=== PATIENT | female | born 1940 | race Caucasian/White ===

== ENCOUNTER → 2020-09-22 | Outpatient (CLI) | payer MEDICARE, OTHER | LOC: LAB SHORT 15:50 → LAB 15:50 | DX: D48.5 Neoplasm of uncertain behavior of skin (principal); L57.0 Actinic keratosis | CPT/HCPCS: 88305; 88312 ==

== ENCOUNTER → 2021-03-09 | Outpatient (CLI) | payer MEDICARE, OTHER ==
[~2021-03-09] MED LIST: ASPI325EC PO; ATEN100 PO; Advil200 M1 PO; Benadryl25 MG PO; Dyazide 37.5-21 EACH PO; Estradiol0.5 MG PO; GABA300 PO; MEDR2.5 PO; MELA3; Multiple Vitam1 EAC1 PO; POTCHL10ER PO; ROSADAN45 GM TP; Synthroid112 MCG PO; TUMS500 MG PO; VITAMIN D-32000 UNIT PO
== END | disposition home or self-care (01) ==
LOC: LAB SHORT 10:54
DX: D48.5 Neoplasm of uncertain behavior of skin (principal)
CPT/HCPCS: 88305

== ENCOUNTER → 2023-05-13 | Outpatient (CLI) | payer MEDICARE ==
[2023-05-13 15:38] LABS: BASOPHILS ABSOLUTE AUTO 0.03 K/mm3 (0.00-0.23); BASOPHILS PERCENT AUTO 1 % (0-2); EOSINOPHILS PERCENT AUTO 0 % (0-6); Hematocrit 35.1 % (33.0-51.0); Hemoglobin 11.4 g/dL (11.5-16.0); IMMATURE GRAN ABSOLUTE AUTO 0.03 K/mm3 (0.00-0.10); IMMATURE GRAN PERCENT AUTO 1 % (0-1); LYMPHOCYTES ABSOLUTE AUTO 0.34 K/mm3 (0.84-5.20); LYMPHOCYTES PERCENT AUTO 6 % (21-46); MONOCYTES ABSOLUTE AUTO 0.21 K/mm3 (0.16-1.47); MONOCYTES PERCENT AUTO 4 % (4-13); Mean Corpuscular HGB 29.2 pg (26.0-34.0); Mean Corpuscular HGB Conc 32.5 g/dL (31.5-36.5); Mean Corpuscular Volume 90 fL (80-100); Mean Platelet Volume 9.3 fL (9.1-12.4); NEUTROPHILS ABSOLUTE AUTO 5.25 K/mm3 (1.96-9.15); NEUTROPHILS PERCENT AUTO 90 % (41-73); Platelet Count 297 K/mm3 (150-400); RDW Coefficient Variation 15.3 % (11.7-14.2); RDW Standard Deviation 50.4 fL (35.1-46.3); Red Blood Cell Count 3.91 M/mm3 (3.80-5.20); White Blood Cell Count 5.86 K/mm3 (4.00-11.30)
[2023-05-13 15:47] LABS: Albumin, Blood 3.6 g/dL (3.4-5.0); Albumin/Globulin Ratio 0.8 (0.8-1.8); Bilirubin, Total 0.2 mg/dL (0.1-1.0); Bun/Creatinine Ratio 17.4 (12.0-20.0); Calcium, Blood 9.7 mg/dL (8.5-10.1); Creatinine, Blood 0.69 mg/dL (0.40-1.00); Globulin, Blood 4.3 g/dL (2.2-4.0); Potassium, Blood 4.5 mmol/L (3.5-5.5); Total Protein, Blood 7.9 g/dL (6.4-8.2)
[2023-05-13 17:01] LABS: International Normalized Ratio 1.08; Prothrombin Time Results 11.3 Sec (9.7-11.5)
== END ==
LOC: LAB SHORT 15:29 → LAB 15:29
PROVIDERS: Emergency Medicine
DX: R22.40 Localized swelling, mass and lump, unspecified lower limb (principal); R23.3 Spontaneous ecchymoses
CPT/HCPCS: 80053; 85025; 85610

== ENCOUNTER → 2024-01-30 | Outpatient (CLI) | payer MEDICARE, OTHER ==
[2024-01-31 12:49] LABS: Stool Occult Bld Immuno 1 Negative (NEGATIVE)
== END | disposition home or self-care (01) ==
LOC: LAB 18:55 → LAB SHORT 18:55 → LAB FUT 01-29 10:10
PROVIDERS: Nurse Practitioner Family
DX: R19.7 Diarrhea, unspecified (principal); R63.4 Abnormal weight loss
CPT/HCPCS: 82274

== ENCOUNTER 2024-12-18 11:06 | Day surgery (SDC) | payer MEDICARE, OTHER ==
[~2024-12-18] VITALS: Ht 162.6 cm; Wt 44.9 kg
[~2024-12-18 11:06] MED LIST changes: +Balanced Salt Epinephrine Irrigation Solution 500 mL IR SCH; +Moxifloxacin HCL 0.5 MG/0.1 ML 0.4MLSYR RIGHTEYE SCH; +Ondansetron 4 MG SoluTab MM PRN; +PHENYLEPHRINE\\TROPICAMIDE\\TETRACAINE OPHTHALMIC DILATING SOLN RIGHTEYE PRN; +Povidone-Iodine 450 DROP/30 ML Solution ONE; +Povidone-Iodine 450 DROP/30 ML Solution RIGHTEYE SCH; +Tetracaine HCl/Pf 0.5% Opth Soln 4 ml ONE; +diazePAM 5 MG,diazePAM 2 MG PO SCH
[2024-12-18] MEDS ORDERED: ANASTROZOLE1 M7 PO (12:24)
[2024-12-18] MEDS ORDERED: SPIRONOLACTONE25 MG PO (12:26)
[2024-12-18] MEDS ORDERED: ZOLP5 PO (12:26)
[2024-12-18] MEDS ORDERED: Voltaren100 GM TOP (12:26)
[2024-12-18] MEDS ORDERED: LOSA50 PO (12:27)
[2024-12-18] MEDS ORDERED: ZOLEDRONIC ACID4 M5 (12:27)
--- NOTE | 2024-12-18 12:41 | NUR ---
12/18/24 1241 Missy Lanier SPO2 MONITOR PROVIDED FLUCTUATING HEART RATE READINGS UPON ARIVAL TO PREOP. AUSCULTATION OF HEART RATE WAS 44BPM. ADVISED DR BUCHANAN OF THIS AND WAS ADVISED THAT IF RHYTHM STRIP SHOWS ANYTHING OTHER THAN JUST A SLOW HEART RATE TO CONSULT WITH DR QUINTANA. RHYTHM STRIP REVEALED LBBB. PER DR QUINTANA, OBTAIN 12 LEAD EKG. 12 LEAD EKG OBTAINED AND SHOWN TO DR QUINTANA. AFTER CONSULT BETWEEN DR QUINTANA AND DR BUCHANAN ALONG WITH INPUT WITH FROM DR REYES VIA TEXT, DECISION TO PROCEED WITH ORAL SEDATION. PT DENIES ANY COMPLAINTS. DENIES CHEST PAIN, SOB, CHEST PRESSURE, DENIES LIGHTHEADNESS/DIZZINESS. PT STATES THAT DURING HER BACK SURGERY SHE WAS TOLD SHE HAD SOME TYPE OF BUNDLE BRANCH BLOCK WELL. STATES THAT HER HEART RATE HAS ALWAYS BEEN LOW, USUALLY IN THE 50S.
[2024-12-18] MEDS ORDERED: Tetracaine HCl 0.5% Opth Soln 15 ml RIGHTEYE ONE (13:03)
--- NOTE | 2024-12-18 13:03 | NUR ---
12/18/24 1303 Luke Doshi PT HAS PRE EXISTING RIGHT BUNDLE BRANCH BLOCK, HR MID 40S. DR BUCHANAN CONSULTED W/ DR QUINTANA. OK TO PROCEED WITH PO NURSE SEDATION PER BOTH NEFTALI.
[2024-12-18 13:17] VITALS: BP 142/66
== END 2024-12-18 13:33 | disposition home or self-care (01) ==
LOC: ORSCSDS 11:06
PROVIDERS: Student in an Organized Health Care Education/Training Program
PROC: 08RJ3JZ Replacement of Right Lens with Synthetic Substitute, Percutaneous Approach (ICD-10-PCS; principal; 2024-12-18 12:30)
DX: H25.813 Combined forms of age-related cataract, bilateral (principal); E05.00 Thyrotoxicosis with diffuse goiter without thyrotoxic crisis or storm; I10 Essential (primary) hypertension; Z79.899 Other long term (current) drug therapy
CPT/HCPCS: 93005; 93010; A9270; V2632

== ENCOUNTER 2024-12-24 06:42 | Day surgery (SDC) | payer MEDICARE, OTHER ==
[~2024-12-24] VITALS: Ht 162.6 cm; Wt 44.8 kg
[~2024-12-24 06:42] MED LIST changes: +ANASTROZOLE1 M7 PO; +LOSA50 PO; +Moxifloxacin HCL 0.5 MG/0.1 ML 0.4MLSYR LEFTEYE SCH; -Moxifloxacin HCL 0.5 MG/0.1 ML 0.4MLSYR RIGHTEYE SCH; +PHENYLEPHRINE\\TROPICAMIDE\\TETRACAINE OPHTHALMIC DILATING SOLN LEFTEYE PRN; -PHENYLEPHRINE\\TROPICAMIDE\\TETRACAINE OPHTHALMIC DILATING SOLN RIGHTEYE PRN; +Povidone-Iodine 450 DROP/30 ML Solution LEFTEYE SCH; -Povidone-Iodine 450 DROP/30 ML Solution RIGHTEYE SCH; +SPIRONOLACTONE25 MG PO; +Voltaren100 GM TOP; +ZOLEDRONIC ACID4 M5; +ZOLP5 PO
--- NOTE | 2024-12-24 07:05 | NUR ---
12/24/24 0705 Anay Diallo PT STATES ANXIETY LEVEL IS 2/10 BEFORE 7MG PO VALIUM PT IS ON CONTINUOUS PULSE ON MONITORING. CALL LIGHT IN HAND
[2024-12-24] MEDS ORDERED: ACET500 (07:08)
--- NOTE | 2024-12-24 08:03 | NUR ---
12/24/24 0803 Anay Escalona [id number]: HR: 50 RR: 12 BP: 157/72 SPO2: 100% ON BLOW BY O2
[2024-12-24 08:18] VITALS: BP 149/76
--- NOTE | 2024-12-24 08:23 | NUR ---
12/24/24 0823 Dori Cherry INSTRUCTED TO PULL CAR TO PATIENT BOOK MENDER AREA
== END 2024-12-24 08:31 | disposition home or self-care (01) ==
LOC: ORSCSDS 06:42
PROVIDERS: Student in an Organized Health Care Education/Training Program
PROC: 08RK3JZ Replacement of Left Lens with Synthetic Substitute, Percutaneous Approach (ICD-10-PCS; principal; 2024-12-24 08:30)
DX: H25.812 Combined forms of age-related cataract, left eye (principal); Z96.1 Presence of intraocular lens; E05.00 Thyrotoxicosis with diffuse goiter without thyrotoxic crisis or storm; I10 Essential (primary) hypertension; Z85.3 Personal history of malignant neoplasm of breast; Z79.899 Other long term (current) drug therapy
CPT/HCPCS: A9270; V2632